=== PATIENT | female | born 1975 ===

== ENCOUNTER 2017-11-29 19:46 | Emergency (ER) | payer BC, OTHER ==
[~2017-11-29] VITALS: Ht 162.6 cm; Wt 102.1 kg
--- NOTE | 2017-11-29 19:43 | ER Report ---
History and Physical Time Seen By MD: 19:42 Hx. of Stated Complaint: Pleuritic chest pain HPI/ROS 42-year-old female brought in by ambulance stating she's had 2 day history of pleuritic chest pain states is worse with deep inspiration felt like she was getting dizzy tonight with that M at that point called the ambulance they given aspirin and nitroglycerin in route she is pain-free on arrival Remainder of the 14 system rev: Yes Allergies: Coded Allergies: Sulfa (Sulfonamide Antibiotics) (Verified Allergy, Intermediate, NAUSEA AND VOMITTING, 11/29/17) nickel (Verified Allergy, Intermediate, REDDNESS/ITCHING/PAIN, 11/29/17) Home Meds Active Scripts Ibuprofen (IBUPROFEN) 400 Mg Tablet, 1 TAB PO Q6H, #30 TAB Prov:CHARLY BOSE 11/29/17 Reported Medications Atenolol (ATENOLOL) 50 Mg Tablet, 1 TAB PO QDAY, TAB 10/11/16 Past Medical/Surgical History History of tonsillectomy in 1985 history of earaches history of cholecystectomy history of hypertension history of GERD history of tubal ligation history kidney stones history of left anterior cruciate ligament repair history of fractures of the ribs the left radius right arm left anterior cruciate ligament and meniscus Reviewed Nurses Notes: Yes Old Medical Records Reviewed: Yes Hx Smoking: Yes (SOCIALLY IN IN 20'S) Hx Substance Use Disorder: No Hx Alcohol Use: Yes Family History of: HTN Constitutional Vital Sign - Last 24 Hours 11/29/17 11/29/17 11/29/17 11/29/17 19:46 19:48 19:50 20:00 Temp 98.1 Pulse ??? 75 Resp 21 B/P (MAP) 156/105 156/105 (122) 166/100 (122) Pulse Ox 94 O2 Delivery Room Air 11/29/17 11/29/17 11/29/17 11/29/17 20:01 20:16 20:30 20:31 Pulse 77 72 70 Resp 16 17 B/P (MAP) 145/92 (109) Pulse Ox 92 92 Physical Exam What he 2-year-old female alert and oriented no acute distress HEENT head is normocephalic/atraumatic tympanic membranes are non-reddened throat is non- reddened neck is supple no JVD no lymphadenopathy heart rate is regular no murmurs rubs or gallops lungs clear to auscultation abdomen is obese bowel sounds 4 no abdominal pain moves all extremities no peripheral edema Medical Decision Making Data Points Result Diagram: 11/29/17192911/29/171929 Laboratory Hematology Test 11/29/17 19:30 11/29/17 21:35 Red Blood Count 5.24 M/uL (4.17-5.56) Mean Corpuscular Volume 89.9 fL (80.0-96.0) Mean Corpuscular Hemoglobin 30.8 pg (26.0-33.0) Mean Corpuscular Hemoglobin Concent 34.2 g/dL (32.0-36.0) Red Cell Distribution Width 13.6 % (11.5-14.5) Mean Platelet Volume 8.2 fL (7.2-11.1) Neutrophils (%) (Auto) 54.6 % (39.4-72.5) Lymphocytes (%) (Auto) 38.4 % (17.6-49.6) Monocytes (%) (Auto) 5.9 % (4.1-12.4) Eosinophils (%) (Auto) 0.8 % (0.4-6.7) Basophils (%) (Auto) 0.3 % (0.3-1.4) Nucleated RBC Relative Count (auto) 0.2 /100WBC Neutrophils # (Auto) 5.8 K/uL (2.0-7.4) Lymphocytes # (Auto) 4.0 K/uL (1.3-3.6) Monocytes # (Auto) 0.6 K/uL (0.3-1.0) Eosinophils # (Auto) 0.1 K/uL (0.0-0.5) Basophils # (Auto) 0.0 K/uL (0.0-0.1) Nucleated RBC Absolute Count (auto) 0.02 K/uL Prothrombin Time 13.1 seconds (12.0-14.4) Prothromb Time International Ratio 0.99 Activated Partial Thromboplast Time 35 seconds (23-35) D-Dimer Quantitative (PE/DVT) < 0.27 ug/ml (0-0.50) Venous Blood pH 7.37 (7.31-7.41) Sodium Level 140 mmol/L (137-145) Potassium Level 3.8 mmol/L (3.5-5.0) Chloride Level 105 mmol/L (98-107) Carbon Dioxide Level 23 mmol/L (22-31) Blood Urea Nitrogen 16 mg/dl (7-18) Creatinine 0.80 mg/dl (0.52-1.04) Glomerular Filtration Rate Calc > 60.0 Random Glucose 91 mg/dl (75-110) Calcium Level 9.4 mg/dl (8.4-10.2) Total Bilirubin 0.5 mg/dl (0.2-1.3) Aspartate Amino Transf (AST/SGOT) 34 U/L (0-35) Alanine Aminotransferase (ALT/SGPT) 42 U/L (0-56) Alkaline Phosphatase 105 U/L (0-126) B-Type Natriuretic Peptide 25 pg/ml (0-100) Total Protein 8.1 gm/dl (6.3-8.2) Albumin 4.3 g/dl (3.5-5.0) Troponin I < 0.012 ng/ml Chemistry Test 11/29/17 19:30 11/29/17 21:35 White Blood Count 10.5 k/uL (4.5-11.0) Red Blood Count 5.24 M/uL (4.17-5.56) Hemoglobin 16.1 g/dL (12.0-16.0) Hematocrit 47.1 % (34.0-47.0) Mean Corpuscular Volume 89.9 fL (80.0-96.0) Mean Corpuscular Hemoglobin 30.8 pg (26.0-33.0) Mean Corpuscular Hemoglobin Concent 34.2 g/dL (32.0-36.0) Red Cell Distribution Width 13.6 % (11.5-14.5) Platelet Count 333 K/uL (150-450) Mean Platelet Volume 8.2 fL (7.2-11.1) Neutrophils (%) (Auto) 54.6 % (39.4-72.5) Lymphocytes (%) (Auto) 38.4 % (17.6-49.6) Monocytes (%) (Auto) 5.9 % (4.1-12.4) Eosinophils (%) (Auto) 0.8 % (0.4-6.7) Basophils (%) (Auto) 0.3 % (0.3-1.4) Nucleated RBC Relative Count (auto) 0.2 /100WBC Neutrophils # (Auto) 5.8 K/uL (2.0-7.4) Lymphocytes # (Auto) 4.0 K/uL (1.3-3.6) Monocytes # (Auto) 0.6 K/uL (0.3-1.0) Eosinophils # (Auto) 0.1 K/uL (0.0-0.5) Basophils # (Auto) 0.0 K/uL (0.0-0.1) Nucleated RBC Absolute Count (auto) 0.02 K/uL Prothrombin Time 13.1 seconds (12.0-14.4) Prothromb Time International Ratio 0.99 Activated Partial Thromboplast Time 35 seconds (23-35) D-Dimer Quantitative (PE/DVT) < 0.27 ug/ml (0-0.50) Venous Blood pH 7.37 (7.31-7.41) Glomerular Filtration Rate Calc > 60.0 Calcium Level 9.4 mg/dl (8.4-10.2) Total Bilirubin 0.5 mg/dl (0.2-1.3) Aspartate Amino Transf (AST/SGOT) 34 U/L (0-35) Alanine Aminotransferase (ALT/SGPT) 42 U/L (0-56) Alkaline Phosphatase 105 U/L (0-126) B-Type Natriuretic Peptide 25 pg/ml (0-100) Total Protein 8.1 gm/dl (6.3-8.2) Albumin 4.3 g/dl (3.5-5.0) Troponin I < 0.012 ng/ml Coagulation Test 11/29/17 19:30 Prothrombin Time 13.1 seconds Prothromb Time International Ratio 0.99 Activated Partial Thromboplast Time 35 seconds D-Dimer Quantitative (PE/DVT) < 0.27 ug/ml EKG/Imaging EKG Interpretation EKG at 1954 normal sinus rhythm compared to EKG of 10/12/2016 no acute changes QTC tonight is 423 . EKG 20/125 shows normal sinus rhythm normal EKG ventricular rate 65 QTC is 440 Monitor Interpretation: Normal Sinus Rhythm Imaging FACILITY: [facility] - [place] PATIENT NAME: Yamila Tubbs : 1975 MR: [id number] V: [id number] EXAM DATE: ORDERING PHYSICIAN: CHARLY BOSE TECHNOLOGIST: Location: [facility] - [place] Patient: Yamila Tubbs : 1975 Visit/Account:[id number] Date of Sevice: 11/29/2017 CHEST SINGLE AP 11/29/2017 19:47 hours. HISTORY: Not feeling well for 2 days. Left-sided chest pain today. COMPARISON: None. TECHNIQUE: Portable AP view of the chest. FINDINGS: Tubes/lines/hardware: None. Pulmonary: Lungs are clear. There is no pneumothorax or pleural effusion. Cardiomediastinal: Cardiac and mediastinal silhouettes are within normal limits. Bones/soft tissues: No acute osseous abnormality. There is mild degenerative change of the spine. The visible abdomen is normal. IMPRESSION: 1. No acute cardiopulmonary process. Report Dictated By: Zainab Faulkner at 11/29/2017 8:37 PM Report E-Signed By: Zainab Faulkner at 11/29/2017 8:38 PM WSN:[id number] ED Course/Re-evaluation Clinical Indication for ER IV: Hydration ED Course Negative workup in the ER for cardiac disease EKG 2 hours apart both within normal limits troponins -2 hours apart did get IV fluids in the emergency room Toradol 30 pain is controlled we'll send her home follow-up with her primary care provider for stress test Re-evaluation Pain-free after treatment will go home and follow up with primary care provider Decision to Disposition Date: Nov 29, 2017 Decision to Disposition Time: 22:02 Depart Departure Latest Vital Signs Vital Signs Date Time Temp Pulse Resp B/P (MAP) Pulse Ox O2 Delivery O2 Flow Rate FiO2 11/29/17 20:31 70 17 92 11/29/17 20:30 145/92 (109) 11/29/17 19:48 98.1 Room Air Impression: Primary Impression: Hypertension Additional Impression: Pleuritic chest pain Condition: Improved Disposition: HOME OR SELF-CARE Referrals: MARY SERRANO PA-C 1 Day New Scripts Ibuprofen (IBUPROFEN) 400 Mg Tablet 1 TAB PO Q6H, #30 TAB Prov: CHARLY BOSE 11/29/17 Patient Instructions: Chest Wall Pain (ED) Additional Instructions: Follow-up with your primary care provider will be sent home with a prescription for Motrin 400 milligrams every 6 hours as needed for pain, return for worsening of symptoms , needs to have a stress test done at your primary care provider organize this MEDICAL COORDINATOR PESTICIDE USE/PA consult with MD: Verbally (dr renae) Problem Qualifiers CHARLY BOSE Nov 29, 2017 19:43
[~2017-11-29 19:46] MED LIST changes: -IBUP400T13 PO
[2017-11-29] MEDS ORDERED: NS(*) 0.9% 1000 ML BAG 1,000 ML IV ONE (19:47)
[2017-11-29] MEDS ORDERED: NITROGLYCERIN OINT 1 GM PKT TP ONE (19:50)
--- NOTE | 2017-11-29 19:59 | EKG ---
FACILITY: [facility] - [place] PATIENT NAME: ROSE MARY PATINO : [id number] MR: [id number] V: [id number] EXAM DATE: ORDERING PHYSICIAN: CHARLY BOSE TECHNOLOGIST: Test Reason : Blood Pressure : / mmHG Vent. Rate : 071 BPM Atrial Rate : 071 BPM P-R Int : 140 ms QRS Dur : 082 ms QT Int : 390 ms P-R-T Axes : 040 037 035 degrees QTc Int : 423 ms Normal sinus rhythm Nonspecific ST and T wave abnormality Abnormal ECG When compared with ECG of 12-OCT-2016 07:47, T wave inversion no longer evident in Inferior leads Confirmed by DARRIUS LYNCH ([id number]) on 11/30/2017 2:34:08 AM Referred By: LIDYA Confirmed By:DARRIUS LYNCH
[2017-11-29 20:01] LABS: PLATELET COUNT, AUTOMATED 333 K/uL (150-450)
[2017-11-29 20:12] LABS: INR 0.99
--- NOTE | 2017-11-29 20:43 | RADIOLOGY IMAGING REPORT ---
FACILITY: [facility] PATIENT NAME: Yamila Tubbs : 1975 MR: [id number] V: [id number] EXAM DATE: ORDERING PHYSICIAN: CHARLY BOSE TECHNOLOGIST: Location: [facility] Patient: Yamila Tubbs : 1975 Visit/Account:[id number] Date of Sevice: 11/29/2017 CHEST SINGLE AP 11/29/2017 19:47 hours. HISTORY: Not feeling well for 2 days. Left-sided chest pain today. COMPARISON: None. TECHNIQUE: Portable AP view of the chest. FINDINGS: Tubes/lines/hardware: None. Pulmonary: Lungs are clear. There is no pneumothorax or pleural effusion. Cardiomediastinal: Cardiac and mediastinal silhouettes are within normal limits. Bones/soft tissues: No acute osseous abnormality. There is mild degenerative change of the spine. The visible abdomen is normal. IMPRESSION: 1. No acute cardiopulmonary process. Report Dictated By: Zainab Faulkner at 11/29/2017 8:37 PM Report E-Signed By: Zainab Faulkner at 11/29/2017 8:38 PM WSN:[id number]
[2017-11-29] MEDS ORDERED: IBUP400T13 PO (21:08)
[2017-11-29] MEDS ORDERED: KETOROLAC 30 MG/ML VIAL IVP ONE (21:30)
[2017-11-29 22:00] VITALS: BP 129/64
--- NOTE | 2017-11-30 03:24 | EKG ---
FACILITY: [facility] [place] PATIENT NAME: ROSE MARY PATINO : [id number] MR: [id number] V: [id number] EXAM DATE: ORDERING PHYSICIAN: CHARLY BOSE TECHNOLOGIST: Test Reason : Blood Pressure : / mmHG Vent. Rate : 065 BPM Atrial Rate : 065 BPM P-R Int : 148 ms QRS Dur : 088 ms QT Int : 424 ms P-R-T Axes : 033 038 035 degrees QTc Int : 440 ms Normal sinus rhythm Normal ECG When compared with ECG of 29-NOV-2017 19:54, No significant change was found Confirmed by DARRIUS LYNCH ([id number]) on 11/30/2017 7:18:49 AM Referred By: Confirmed By:DARRIUS LYNCH
== END 2017-11-29 22:12 | disposition home or self-care (01) ==
LOC: ER 19:52
DX: I10 Essential (primary) hypertension (principal); R07.89 Other chest pain; R94.31 Abnormal electrocardiogram [ECG] [EKG]
CPT/HCPCS: 71045; 82800; 83880; 84484; 85025; 85379; 85610; 85730; 93005; 96361; 96374; 99284; J1885; J7030; 82040; 82247; 82310; 82374; 82435; 82565; 82947; 84075; 84132; 84155; 84295; 84450; 84460; 84520

== ENCOUNTER → 2017-11-29 | Outpatient (CLI) | payer BC ==
[~2017-11-29] MED LIST: ATEN-1 PO; CIPR500S3 PO; DOCU-416 PO; HYDR-317 PO; HYDR-389 PO; IBUP400T13 PO; IBUP600T22 PO; METH-280 PO; NAPR-724 PO; ONDA4TAB97 PO; TAMS0.4C25 PO; TRAM-420 PO
== END ==
LOC: AMB 19:10
PROVIDERS: ATTEND Nurse Practitioner
DX: R07.9 Chest pain, unspecified (principal); R53.1 Weakness; R42 Dizziness and giddiness; R11.0 Nausea
CPT/HCPCS: A0425; A0427

== ENCOUNTER → 2019-04-09 | Outpatient (CLI) | payer BC ==
[~2019-04-09] MED LIST changes: +IBUP400T13 PO; -NAPR-724 PO; +NAPR500T31 PO
--- NOTE | 2019-04-10 08:58 | RADIOLOGY IMAGING REPORT ---
FACILITY: [facility] - [place] PATIENT NAME: ROSE MARY PATINO : [id number] MR: [id number] V: [id number] EXAM DATE: [id number] ORDERING PHYSICIAN: MARY SERRANO TECHNOLOGIST: Divine Conner PROCEDURE: BILATERAL DIGITAL SCREENING MAMMOGRAM WITH CAD ASSISTED INTERPRETATION & 3D TOMOSYNTHESIS REASON FOR STUDY: Screening FAMILY HISTORY OF BREAST CANCER: None BREAST PROCEDURES/TREATMENTS: None COMPARISON: None VIEWS OBTAINED: Bilateral 2D & 3D full field CC & MLO BREAST DENSITY: There are scattered areas of fibroglandular density throughout the breasts.. MAMMOGRAM FINDINGS: There is a focal asymmetry posterior to mid nipple line in the middle depth on the Left CC view best appreciated on tomographic slice #31 for which spot compression view is recommended. This is not as well seen on the MLO view although maybe in the upper portion of the Left breast in the middle depth IMPRESSION: BIRADS 0: Incomplete, need additional imaging evaluation Additional views Left breast recommended as described. DIAGNOSTIC CATEGORY 0--INCOMPLETE: NEED ADDITIONAL IMAGING EVALUATION. RECOMMENDATIONS: ADDITIONAL MAMMOGRAPHIC VIEWS REQUIRED: LEFT BREAST. Dictated by: Cyndi Sibley M.D. on 04/09/2019 at 11:11 Transcribed by: AMANDA on 04/09/2019 at 12:58 Approved by: Cyndi Sibley M.D. on 04/10/2019 at 8:57 [facility]
== END ==
LOC: MAMO 00:40
PROVIDERS: ATTEND Physician Assistant
DX: R92.8 Other abnormal and inconclusive findings on diagnostic imaging of breast (principal)
CPT/HCPCS: 77063; 77067